=== PATIENT | male | born 1990 | race Caucasian/White ===

== ENCOUNTER 2019-09-13 07:19 | Emergency (ER) | payer OTHER ==
[~2019-09-13] VITALS: Ht 177.8 cm; Wt 89.3 kg
[2019-09-13] MEDS ORDERED: AMOX500C PO (07:27)
[2019-09-13] MEDS ORDERED: ZITH250T PO (07:28)
[2019-09-13 08:04] LABS: BASO # 0.1 10^3/uL (0.0-0.2); BASO % 1.2 % (0.0-1.0); EOS # 0.2 10^3/uL (0.0-0.5); EOS % 4.9 % (0.0-3.0); HEMOGLOBIN 16.9 g/dl (13.5-17.5); LYMPH # 1.1 10^3/uL (1.5-5.0); LYMPH % 25.1 % (24.0-44.0); MEAN CORPUSCULAR HEMOGLOBIN 31.5 pg (27.0-33.0); MEAN CORPUSCULAR HGB CONC 34.5 g/dl (32.0-36.5); MEAN CORPUSCULAR VOLUME 91.2 fl (80.0-96.0); MONO # 0.6 10^3/uL (0.0-0.8); MONO % 14.1 % (0.0-5.0); NEUTROPHILS # 2.3 10^3/uL (1.5-8.5); NEUTROPHILS % 54.2 % (36.0-66.0); PLATELET COUNT, AUTOMATED 231 10^3/uL (150-450); RED BLOOD COUNT 5.37 10^6/uL (4.30-6.10); WHITE BLOOD COUNT 4.3 10^3/uL (4.0-10.0)
--- NOTE | 2019-09-13 08:07 | REP ---
No chest, 07:53 a.m., single AP view with the patient upright: There are no comparisons. The lung jarrell are clear. The cardiac size is normal. The trish, mediastinum, and skeletal structures are unremarkable. Impression: Negative portable chest. Electronically Signed by Nakul Lopez MD 09/13/2019 07:58 A
[2019-09-13] MEDS ORDERED: IPRATROPIUM 0.5MG/ALBUTEROL 2.5MG INH SOL UD 3ML (DUONEB)(J7620) NEB ONE (08:15)
[2019-09-13 08:30] LABS: BLOOD UREA NITROGEN 16 MG/DL (7-18); CALCIUM LEVEL 8.8 MG/DL (8.5-10.1); CARBON DIOXIDE LEVEL 27 MEQ/L (21-32); CHLORIDE LEVEL 108 MEQ/L (98-107); CK-MB VALUE MASS < 1.0 NG/ML (<3.6); CPK CREATINE PHOSPHOKINASE 72 U/L (39-308); CREATININE FOR GFR 0.95 MG/DL (0.70-1.30); GLOMERULAR FILTRATION RATE > 60.0 (>60); GLUCOSE, FASTING 82 MG/DL (70-100); MB/CK RELATIVE INDEX 1.39 (< OR =4); POTASSIUM SERUM 4.4 MEQ/L (3.5-5.1); SODIUM LEVEL 140 MEQ/L (136-145); TROPONIN I < 0.02 NG/ML (< 0.10)
[2019-09-13 09:15] VITALS: BP 133/90
[2019-09-13] MEDS ORDERED: ALBU8.5H IH (09:20)
--- NOTE | 2019-09-13 19:31 | ECGEPIP ---
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
== END 2019-09-13 09:39 | disposition home or self-care (01) ==
LOC: M ED 07:19
DX: J06.9 Acute upper respiratory infection, unspecified (principal); J45.909 Unspecified asthma, uncomplicated; I45.89 Other specified conduction disorders

== ENCOUNTER 2020-05-03 01:11 | Emergency (ER) | payer OTHER ==
[~2020-05-03] VITALS: Ht 177.8 cm; Wt 86.4 kg
[~2020-05-03 01:11] MED LIST: ALBU8.5H IH; AMOX500C PO; ZITH250T PO
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
[2020-05-03 02:58] VITALS: BP 120/73
== END 2020-05-03 03:03 | disposition home or self-care (01) ==
LOC: M ED 01:11
DX: F10.929 Alcohol use, unspecified with intoxication, unspecified (principal); S00.83XA Contusion of other part of head, initial encounter; S03.2XXA Dislocation of tooth, initial encounter; Y04.8XXA Assault by other bodily force, initial encounter; Y92.89 Other specified places as the place of occurrence of the external cause; Y93.89 Activity, other specified; Y99.8 Other external cause status

== ENCOUNTER → 2021-03-23 | Outpatient (REF) ==
--- NOTE | 2021-03-23 12:23 | REP ---
INDICATION: SOB. COMPARISON: 09/13/2019 a portable exam TECHNIQUE: PA and lateral FINDINGS: The superior mediastinal structures are midline. The cardiac silhouette is unremarkable in size, shape, and position. The diaphragmatic surfaces of the lungs are regular, and the costophrenic angles are clear. The pulmonary jarrell are clear. The imaged osseous structures are intact. IMPRESSION: There is no acute cardiopulmonary disease. <Electronically signed by Pacheco Navas > 03/23/21 [id number]
== END ==
LOC: M PLAIMG 11:01
PROVIDERS: ATTEND Internal Medicine
DX: R06.02 Shortness of breath (principal)